=== PATIENT | male | born 1960 | race African-American/Black ===

== ENCOUNTER 2018-12-21 14:15 | Emergency (ER) | payer OTHER ==
[~2018-12-21] VITALS: Ht 167.6 cm; Wt 76.2 kg
--- NOTE | 2018-12-21 14:19 | NUR ---
ED Nurse Note: PT CALLED FROM WAITING ROOM. PT STATES HE'S NOT READY TO COME IN YET.
[2018-12-21 14:30] VITALS: BP 180/90
[2018-12-21] MEDS ORDERED: UNOBMED (14:30)
--- NOTE | 2018-12-21 14:30 | NUR ---
ED Nurse Note: pt came in due to med refill of lisinopril and amlodipine,denies any pain. seen by ermd. will continue to monitor
[2018-12-21] MEDS ORDERED: ZESTRIL10 M1 ORAL (14:41)
[2018-12-21] MEDS ORDERED: AMLODIPINE BESYL5 MG ORAL (14:41)
[2018-12-21 14:45] VITALS: BP 180/90
--- NOTE | 2018-12-21 14:45 | NUR ---
ER DISCHARGE NOTE: Patient is cleared to be discharged per ERMD, pt is aox4, on room air, with stable vital signs. pt was given dc and prescription instructions, pt was able to verbalize understanding, pt id band removed without complications. pt is able to ambulate with steady gait. pt took all belongings.
--- NOTE | 2018-12-21 17:33 | Emergency Room Report ---
History of Present Illness General Chief Complaint: Medication Refill Source: Patient Present Illness HPI 58-year-old male presents ED for evaluation. Patient walked in requesting medication refill. States that he needs a refill of his amlodipine and lisinopril. When I asked patient how long he is not on his medication and became upset and said "just give me my prescriptions". Patient will not provide any additional history at this time. will not specify who his PMD is. Does not specify to be taking any additional medications. No other aggravating relieving factors. No other associated symptoms Allergies: Coded Allergies: PENICILLINS (Verified Allergy, Unknown, 12/21/18) Patient History Past Medical History: HTN Past Surgical History: none Pertinent Family History: none Social History: Denies: smoking, alcohol use, drug use Immunizations: UTD Reviewed Nursing Documentation: PMH: Agreed; PSxH: Agreed Nursing Documentation-PMH Past Medical History: No History, Except For Hx Hypertension: Yes History Of Psychiatric Problem: Yes Review of Systems All Other Systems: negative except mentioned in HPI Physical Exam Vital Signs Date Time Temp Pulse Resp B/P (MAP) Pulse Ox O2 Delivery O2 Flow Rate FiO2 12/21/18 14:25 99.0 114 18 187/96 (126) 96 Room Air Sp02 EP Interpretation: reviewed, normal General Appearance: no apparent distress, alert, GCS 15, non-toxic Head: normocephalic, atraumatic Eyes: bilateral eye normal inspection, bilateral eye PERRL ENT: hearing grossly normal, normal pharynx, no angioedema, normal voice Neck: full range of motion, supple/symm/no masses Respiratory: chest non-tender, lungs clear, normal breath sounds, speaking full sentences Cardiovascular #1: regular rate, rhythm, no edema Cardiovascular #2: 2+ carotid (R), 2+ carotid (L), 2+ radial (R), 2+ radial (L) , 2+ dorsalis pedis (R), 2+ dorsalis pedis (L) Gastrointestinal: normal bowel sounds, non tender, soft, non-distended, no guarding, no rebound Rectal: deferred Genitourinary: normal inspection, no CVA tenderness Musculoskeletal: back normal, gait/station normal, normal range of motion, non- tender Neurologic: alert, oriented x3, responsive, motor strength/tone normal, sensory intact, speech normal Psychiatric: judgement/insight normal, memory normal, mood/affect normal, no suicidal/homicidal ideation Reflexes: 3+ bicep (R), 3+ bicep (L), 3+ tricep (R), 3+ tricep (L), 3+ knee (R) , 3+ knee (L) Skin: normal color, no rash, warm/dry, well hydrated Lymphatic: no adenopathy Medical Decision Making Diagnostic Impression: Primary Impression: Encounter for medication refill ER Course 58 year-old male presents to ED refill of his medication. History of hypertension hospital course: patient placed on stretcher. When he attempted to talk to the patient he became very agitated and combative stating "just refill my medication". Patient also provided similar difficulty to triage nurse. I explained to the patient that I needed additional information before I can prescribe him refills of his BP meds. At this time patient stood up and became agitated and somewhat combative. I splinted the patient that if he continues with his behavior he will be escorted from the ED. He provided a document showing amlodipine 5 mg lisinopril 10 mg. i agreed to refill his medications. patient continue to scream and yell in the ED. I requested that patient be escorted from the ED with his discharge papers and prescriptions. Diagnosis-encounter for medication refill Stable and discharged to home with prescription for amlodipine, lisinopril. Followup with PMD. Return to ED if symptoms recur or worsen Last Vital Signs Date Time Temp Pulse Resp B/P (MAP) Pulse Ox O2 Delivery O2 Flow Rate FiO2 12/21/18 14:45 99.0 88 18 180/90 96 Room Air Status: improved Disposition: HOME, SELF-CARE Condition: Stable Scripts Lisinopril* (ZESTRIL*) 10 Mg Tablet 10 MG ORAL DAILY for 7 Days, TAB Prov: Darian Toscano MD 12/21/18 Amlodipine Besylate* (AMLODIPINE BESYLATE*) 5 Mg Tablet 5 MG ORAL DAILY for 7 Days, TAB Prov: Darian Toscano MD 12/21/18 Referrals: [facility],REFERRING (PCP) [facility] Patient Instructions: Medicine Refill at the Emergency Department Darian Toscano MD December 21, 2018 17:33
== END 2018-12-21 14:45 | disposition home or self-care (01) ==
LOC: EMR 14:30
DX: Z76.0 Encounter for issue of repeat prescription (principal); I10 Essential (primary) hypertension; Z88.0 Allergy status to penicillin
CPT/HCPCS: 99282